=== PATIENT | male | born 1965 | race Caucasian/White ===

== ENCOUNTER 2017-12-09 14:16 | Inpatient (IN) | payer OTHER ==
--- NOTE | 2017-12-09 18:51 | HP ---
CIWA Score - CIWA Score Nausea/Vomitin-No Nausea/No Vomiting Muscle Tremors: 4-Moderate,w/Arms Extend Anxiety: 2 Agitation: 0-Normal Activity Paroxysmal Sweats: No Perspiration Orientation: 1-Uncertain about Date Tacttile Disturbances: 0-None Auditory Disturbances: 0-None Visual Disturbances: 0-None Headache: 0-None Present CIWA-Ar Total Score: 7 Admission ROS B[facility] - HPI Allergies/Adverse Reactions: Allergies Allergy/AdvReac Type Severity Reaction Status Date / Time No Known Allergies Allergy Verified 12/09/17 18:45 History of Present Illness: pt here requesting detox from etoh use , reports he is drinking 3-4 large liquor bottles and 1 case of beer/day , latest use today , reports tremors if not drinking ,denies seizures, blackouts ,+ falls most recently 1 week ago went to [facility] . No d/c papers available, pt vague about the history of hospital admission and d/c, states went to the store and has been drinking , currently complains of tremors. utox + opi pmhx/pshx : r shoulder stiffness x 2 weeks. Has trach - does not recall details . psych : denies allergies ; denies tobacco : 3 ppd Exam Limitations: Clinical Condition, Intoxication - Ebola screening Have you traveled outside of the country in the last 21 days: No Have you had contact with anyone from an Ebola affected area: No Do you have a fever: No - Review of Systems Constitutional: See HPI EENT: reports: No Symptoms Reported Respiratory: reports: Cough, Other (reports cough x 2 weeks, claims had CXR at hospital) Cardiac: reports: No Symptoms Reported GI: reports: Diarrhea : reports: No Symptoms Reported Musculoskeletal: reports: Back Pain, Other (reports Lbp X 2 WEEKS after fall) Integumentary: reports: Other (left eyebrow laceration after fall 2 weeks ago) Neuro: reports: Unsteady Gait Endocrine: reports: No Symptoms Reported Hematology: reports: No Symptoms Reported Psychiatric: reports: Orientated x3, Depressed Patient History - Smoking Cessation Smoking history: Current every day smoker Have you smoked in the past 12 months: Yes Aproximately how many cigarettes per day: 3 Hx Chewing Tobacco Use: No Initiated information on smoking cessation: No - Substances Abused Alcohol Route: Oral Frequency: Daily Amount used: 6 PACK BEER Age of first use: 18 Date of Last Use: 12/09/17 Family Disease History - Family Disease History Family History: Denies Admission Physical Exam [facility] - Physical General Appearance: Yes: Disheveled, Moderate Distress, Tremorous, Anxious HEENTM: Yes: EOMI, Hearing grossly Normal, Normocephalic, Normal Voice, Pharynx Normal, Other (many missing teeth , trach site w/ dressing intact left subraorbital abrasion w/ crusting, no deformity) Respiratory: Yes: Decreased Breath Sounds, No Accessory Muscle Use, Rhonchi Neck: Yes: No masses,lesions,Nodules, Trachea in good position, Other (dressing in place , intact , no discharge noted) Breast: Yes: Breast Exam Deferred Cardiology: Yes: Regular Rhythm, Regular Rate, Tachycardia Abdominal: Yes: Normal Bowel Sounds, Non Tender, Soft Genitourinary: Yes: Within Normal Limits Back: Yes: Normal Inspection Musculoskeletal: Yes: Joint Stiffness, Other (decreased PROM R UE , fair PROM , no tendernes no crepitus no deformity) Extremities: Yes: Normal Capillary Refill, Normal Inspection, Non-Tender, Tremors, Pedal Edema, Other (sepideh hands edema) Neurological: Yes: Motor Strength 5/5, Disoriented, Depressed Affect Integumentary: Yes: Normal Color, Dry, Warm - Addiitonal Findings: patient is very poor historian . - Diagnostic (1) Alcohol withdrawal Current Visit: Yes Status: Acute Qualifiers: Complication of substance-induced condition: with unspecified complication Qualified Code(s): F10.239 - Alcohol dependence with withdrawal, unspecified (2) Nicotine dependence Current Visit: Yes Status: Chronic Qualifiers: Substance use status: uncomplicated
[2017-12-09] MEDS ORDERED: IBUPROFEN 400 MG TABLET (FP) PO PRN (19:01)
[2017-12-09] MEDS ORDERED: MAGNESIUM CITRATE 300 ML BOTTLE PO PRN (19:01)
[2017-12-09] MEDS ORDERED: MAG HYDROX/AL HYDROX/SIMETH 30 ML UNIT-DOSE CUP PO PRN (19:01)
[2017-12-09] MEDS ORDERED: P-EPHED 60MG/TRIPROLIDI 2.5MG TABLET PO PRN (19:01)
[2017-12-09] MEDS ORDERED: MAGNESIUM HYDROX 2400MG/30ML ORAL SUSPENSION 30 ML CUP PO PRN (19:01)
[2017-12-09] MEDS ORDERED: chlordiazePOXIDE HCL 25 MG CAPSULE PO PRN (19:01)
[2017-12-09] MEDS ORDERED: guaiFENesin/D-METHORPHAN HB 10 ML UNIT-DOSE CUPS PO PRN (19:01)
[2017-12-09] MEDS ORDERED: MENTHOL/PHENOL 1 EACH UD MM PRN (19:01)
[2017-12-09] MEDS ORDERED: ACETAMINOPHEN 325 MG TABLET (FP) PO PRN (19:01)
[2017-12-09] MEDS ORDERED: NICOTINE POLACRILEX 2 MG GUM BC PRN (19:01)
[2017-12-09 19:49] VITALS: BMI 22.6
[2017-12-09] MEDS ORDERED: MELATONIN 5 MG TABLETS PO PRN (22:00)
[2017-12-09] MEDS: chlordiazePOXIDE HCL 25 MG CAPSULE PO SCH (22:50)
[2017-12-09] MEDS: THIAMINE HCL 100 MG TABLET (FP) PO SCH (22:50)
[2017-12-10] MEDS: chlordiazePOXIDE HCL 25 MG CAPSULE PO SCH ×4 (07:14→23:19)
[2017-12-10] MEDS: PRENATAL VITAMINS W/ FOLIC ACID TABLET (FP) PO SCH (10:34)
[2017-12-10 11:04] LABS: ALBUMIN 3.2 g/dl (3.4-5.0); ALK PHOS 241 U/L (45-117); ANION GAP 11 MMOL/L (8-16); BILIRUBIN,TOTAL 1.1 mg/dL (0.2-1); BLOOD UREA NITROGEN 7 mg/dL (7-18); CALCIUM 8.5 mg/dL (8.5-10.1); CHLORIDE 103 mmol/L (98-107); CO2 24 mmol/L (21-32); CREATININE 0.5 mg/dL (0.55-1.3); GLUCOSE,RANDOM 73 mg/dL (74-106); POTASSIUM 3.5 mmol/L (3.5-5.1); SGOT/AST 82 U/L (15-37); SGPT/ALT 37 U/L (13-61); SODIUM 138 mmol/L (136-145); TOT PROT 8.1 g/dl (6.4-8.2)
[2017-12-10 11:05] LABS: HEMOGLOBIN 9.1 GM/dL (11.7-16.9); MCH 27.1 pg (25.7-33.7); MCHC 31.5 g/dl (32.0-35.9); MEAN CELL VOLUME 86.1 fl (80-96); MEAN PLT VOLUME 8.9 fl (7.5-11.1); PLATELET COUNT 84 K/MM3 (134-434); RBC 3.37 M/mm3 (4.00-5.60); RDW 15.1 % (11.9-15.9); WHITE BLOOD COUNT 5.7 K/mm3 (4.0-10.0)
--- NOTE | 2017-12-10 14:17 | PN ---
S CIWA - CIWA Score Nausea/Vomitin Muscle Tremors: 3 Anxiety: 3 Agitation: 3 Paroxysmal Sweats: 3 Orientation: 0-Oriented Tacttile Disturbances: 0-None Auditory Disturbances: 0-None Visual Disturbances: 0-None Headache: 0-None Present CIWA-Ar Total Score: 14 S Progress Note (SOAP) Subjective: sweats diarrhea sleep disturbance shakes Objective: 12/10/17 14:13 Met sleeping in bed arousable to verbal stimuli cane by bedside, abdomen distended Vital Signs Temperature 99 F 12/10/17 14:07 Pulse Rate 96 H 12/10/17 14:07 Respiratory Rate 18 12/10/17 14:07 Blood Pressure 141/101 H 12/10/17 14:07 O2 Sat by Pulse Oximetry (%) Laboratory Last Values WBC 5.7 K/mm3 (4.0-10.0) 12/10/17 08:00 RBC 3.37 M/mm3 (4.00-5.60) L 12/10/17 08:00 Hgb 9.1 GM/dL (11.7-16.9) L 12/10/17 08:00 Hct 29.0 % (35.4-49) L 12/10/17 08:00 MCV 86.1 fl (80-96) 12/10/17 08:00 MCH 27.1 pg (25.7-33.7) 12/10/17 08:00 MCHC 31.5 g/dl (32.0-35.9) L 12/10/17 08:00 RDW 15.1 % (11.9-15.9) 12/10/17 08:00 Plt Count 84 K/MM3 (134-434) L 12/10/17 08:00 MPV 8.9 fl (7.5-11.1) 12/10/17 08:00 Sodium 138 mmol/L (136-145) 12/10/17 08:00 Potassium 3.5 mmol/L (3.5-5.1) 12/10/17 08:00 Chloride 103 mmol/L (98-107) 12/10/17 08:00 Carbon Dioxide 24 mmol/L (21-32) 12/10/17 08:00 Anion Gap 11 MMOL/L (8-16) 12/10/17 08:00 BUN 7 mg/dL (7-18) 12/10/17 08:00 Creatinine 0.5 mg/dL (0.55-1.3) L 12/10/17 08:00 Creat Clearance w eGFR > 60 (>60) 12/10/17 08:00 Random Glucose 73 mg/dL (74-106) L 12/10/17 08:00 Calcium 8.5 mg/dL (8.5-10.1) 12/10/17 08:00 Total Bilirubin 1.1 mg/dL (0.2-1) H 12/10/17 08:00 AST 82 U/L (15-37) H 12/10/17 08:00 ALT 37 U/L (13-61) 12/10/17 08:00 Alkaline Phosphatase 241 U/L (45-117) H 12/10/17 08:00 Total Protein 8.1 g/dl (6.4-8.2) 12/10/17 08:00 Albumin 3.2 g/dl (3.4-5.0) L 12/10/17 08:00 RPR Titer Nonreactive (NONREACTIVE) 12/10/17 08:00 labs noted H & H low UA pending Assessment: 12/10/17 14:16 withdrawal sx Anemia Plan: continue detox Iron supplements
--- NOTE | 2017-12-10 14:19 | PN ---
[facility] Progress Note Note: Tuberculin ordered re- no documented PPD status
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
[2017-12-10] MEDS: FERROUS SO4 325 MG TABLET (FP) PO SCH (21:57)
[2017-12-10] MEDS: THIAMINE HCL 100 MG TABLET (FP) PO SCH (23:19)
[2017-12-11] MEDS: chlordiazePOXIDE HCL 25 MG CAPSULE PO SCH ×3 (06:39→23:23)
[2017-12-11] MEDS: FERROUS SO4 325 MG TABLET (FP) PO SCH ×2 (07:04→23:30)
[2017-12-11] MEDS: PRENATAL VITAMINS W/ FOLIC ACID TABLET (FP) PO SCH (10:35)
--- NOTE | 2017-12-11 10:45 | PN ---
[facility] CIWA - CIWA Score Nausea/Vomitin-Mild Nausea/No Vomiting Muscle Tremors: 2 Anxiety: 1-Mildly Anxious Agitation: 1-Slight > Activity Paroxysmal Sweats: 1-Minimal Palms Moist Orientation: 1-Uncertain about Date Tacttile Disturbances: 1-Very Mild Itch/Numbness Auditory Disturbances: 1-Very Mild Visual Disturbances: 0-None Headache: 1-Very Mild CIWA-Ar Total Score: 10 BHS Progress Note (SOAP) Subjective: sweat tremor gi distress body aches Objective: 12/11/17 10:44 Vital Signs Temperature 97.9 F 12/11/17 09:36 Pulse Rate 101 H 12/11/17 09:36 Respiratory Rate 20 12/11/17 09:36 Blood Pressure 146/89 12/11/17 09:36 O2 Sat by Pulse Oximetry (%) Laboratory Last Values WBC 5.7 K/mm3 (4.0-10.0) 12/10/17 08:00 RBC 3.37 M/mm3 (4.00-5.60) L 12/10/17 08:00 Hgb 9.1 GM/dL (11.7-16.9) L 12/10/17 08:00 Hct 29.0 % (35.4-49) L 12/10/17 08:00 MCV 86.1 fl (80-96) 12/10/17 08:00 MCH 27.1 pg (25.7-33.7) 12/10/17 08:00 MCHC 31.5 g/dl (32.0-35.9) L 12/10/17 08:00 RDW 15.1 % (11.9-15.9) 12/10/17 08:00 Plt Count 84 K/MM3 (134-434) L 12/10/17 08:00 MPV 8.9 fl (7.5-11.1) 12/10/17 08:00 Sodium 138 mmol/L (136-145) 12/10/17 08:00 Potassium 3.5 mmol/L (3.5-5.1) 12/10/17 08:00 Chloride 103 mmol/L (98-107) 12/10/17 08:00 Carbon Dioxide 24 mmol/L (21-32) 12/10/17 08:00 Anion Gap 11 MMOL/L (8-16) 12/10/17 08:00 BUN 7 mg/dL (7-18) 12/10/17 08:00 Creatinine 0.5 mg/dL (0.55-1.3) L 12/10/17 08:00 Creat Clearance w eGFR > 60 (>60) 12/10/17 08:00 Random Glucose 73 mg/dL (74-106) L 12/10/17 08:00 Calcium 8.5 mg/dL (8.5-10.1) 12/10/17 08:00 Total Bilirubin 1.1 mg/dL (0.2-1) H 12/10/17 08:00 AST 82 U/L (15-37) H 12/10/17 08:00 ALT 37 U/L (13-61) 12/10/17 08:00 Alkaline Phosphatase 241 U/L (45-117) H 12/10/17 08:00 Total Protein 8.1 g/dl (6.4-8.2) 12/10/17 08:00 Albumin 3.2 g/dl (3.4-5.0) L 12/10/17 08:00 RPR Titer Nonreactive (NONREACTIVE) 12/10/17 08:00 lab noted Assessment: 12/11/17 10:44 withdrawal sx anemia 12/11/17 10:45 back pain Plan: continue detox continue iron supplement baclofen 10 mg x 1
[2017-12-11] MEDS ORDERED: BACLOFEN 10 MG TABLET (FP) PO ONE (12:00)
[2017-12-11] MEDS: RANITIDINE HCL 150 MG TABLET (FP) PO SCH ×2 (12:17→23:31)
[2017-12-11] MEDS ORDERED: LOPERAMIDE HCL 1 MG/5 ML UNIT DOSE CUP PO ONE (13:07)
[2017-12-11] MEDS: LOPERAMIDE HCL 2 MG CAPSULE PO ONE (13:42)
[2017-12-11] MEDS: chlordiazePOXIDE 5 MG CAPSULE PO SCH (23:32)
[2017-12-11] MEDS: THIAMINE HCL 100 MG TABLET (FP) PO SCH (23:32)
[2017-12-12] MEDS: chlordiazePOXIDE 5 MG CAPSULE PO SCH ×3 (06:09→17:54)
[2017-12-12] MEDS: FERROUS SO4 325 MG TABLET (FP) PO SCH ×2 (08:33→17:54)
[2017-12-12] MEDS ORDERED: LOPERAMIDE HCL 2 MG CAPSULE PO ONE (08:50)
[2017-12-12] MEDS: PRENATAL VITAMINS W/ FOLIC ACID TABLET (FP) PO SCH (10:06)
[2017-12-12] MEDS: RANITIDINE HCL 150 MG TABLET (FP) PO SCH ×2 (10:06→22:05)
[2017-12-12] MEDS ORDERED: BACLOFEN 10 MG TABLET (FP) PO ONE (10:13)
--- NOTE | 2017-12-12 12:33 | PN ---
[facility] Progress Note (SOAP) Subjective: feeling better no tremor less sweat no gi distress Objective: 12/12/17 12:32 Vital Signs Temperature 97.3 F L 12/12/17 09:34 Pulse Rate 89 12/12/17 09:34 Respiratory Rate 18 12/12/17 09:34 Blood Pressure 137/98 12/12/17 09:34 O2 Sat by Pulse Oximetry (%) Laboratory Last Values WBC 5.7 K/mm3 (4.0-10.0) 12/10/17 08:00 RBC 3.37 M/mm3 (4.00-5.60) L 12/10/17 08:00 Hgb 9.1 GM/dL (11.7-16.9) L 12/10/17 08:00 Hct 29.0 % (35.4-49) L 12/10/17 08:00 MCV 86.1 fl (80-96) 12/10/17 08:00 MCH 27.1 pg (25.7-33.7) 12/10/17 08:00 MCHC 31.5 g/dl (32.0-35.9) L 12/10/17 08:00 RDW 15.1 % (11.9-15.9) 12/10/17 08:00 Plt Count 84 K/MM3 (134-434) L 12/10/17 08:00 MPV 8.9 fl (7.5-11.1) 12/10/17 08:00 Sodium 138 mmol/L (136-145) 12/10/17 08:00 Potassium 3.5 mmol/L (3.5-5.1) 12/10/17 08:00 Chloride 103 mmol/L (98-107) 12/10/17 08:00 Carbon Dioxide 24 mmol/L (21-32) 12/10/17 08:00 Anion Gap 11 MMOL/L (8-16) 12/10/17 08:00 BUN 7 mg/dL (7-18) 12/10/17 08:00 Creatinine 0.5 mg/dL (0.55-1.3) L 12/10/17 08:00 Creat Clearance w eGFR > 60 (>60) 12/10/17 08:00 Random Glucose 73 mg/dL (74-106) L 12/10/17 08:00 Calcium 8.5 mg/dL (8.5-10.1) 12/10/17 08:00 Total Bilirubin 1.1 mg/dL (0.2-1) H 12/10/17 08:00 AST 82 U/L (15-37) H 12/10/17 08:00 ALT 37 U/L (13-61) 12/10/17 08:00 Alkaline Phosphatase 241 U/L (45-117) H 12/10/17 08:00 Total Protein 8.1 g/dl (6.4-8.2) 12/10/17 08:00 Albumin 3.2 g/dl (3.4-5.0) L 12/10/17 08:00 RPR Titer Nonreactive (NONREACTIVE) 12/10/17 08:00 lab noted Assessment: 12/12/17 12:33 mild withdrawal sx Plan: medically supervised detox
[2017-12-12] MEDS: THIAMINE HCL 100 MG TABLET (FP) PO SCH (22:05)
[2017-12-12] MEDS: chlordiazePOXIDE HCL 10 MG CAPSULE PO SCH (22:05)
[2017-12-13] MEDS: chlordiazePOXIDE HCL 10 MG CAPSULE PO SCH (05:47)
[2017-12-13] MEDS: FERROUS SO4 325 MG TABLET (FP) PO SCH (07:42)
[2017-12-13] MEDS: RANITIDINE HCL 150 MG TABLET (FP) PO SCH (09:21)
[2017-12-13] MEDS: PRENATAL VITAMINS W/ FOLIC ACID TABLET (FP) PO SCH (09:21)
[2017-12-13] MEDS ORDERED: LOPERAMIDE HCL 2 MG CAPSULE PO PRN (09:27)
[2017-12-13 09:36] VITALS: BP 115/78; PULSE 92; TEMP 96.9
--- NOTE | 2017-12-13 09:42 | DS ---
[facility] Detox Discharge Summary Admission Date: 12/09/17 Discharge Date: 12/13/17 - History Present History: Alcohol Dependence - Physical Exam Results Vital Signs: Vital Signs Temperature 96.9 F L 12/13/17 09:36 Pulse Rate 92 H 12/13/17 09:36 Respiratory Rate 19 12/13/17 09:36 Blood Pressure 115/78 12/13/17 09:36 O2 Sat by Pulse Oximetry (%) - Treatment Hospital Course: Detox Protocol Followed, Detoxed Safely, Responded well, Discharged Condition Good, Rehab Referral Accepted - Medication Discharge Medications: Ambulatory Orders NK [No Known Home Medication] 12/09/17 - Diagnosis (1) Alcohol withdrawal Current Visit: Yes Status: Acute Qualifiers: Complication of substance-induced condition: uncomplicated Qualified Code(s ): F10.230 - Alcohol dependence with withdrawal, uncomplicated (2) Nicotine dependence Current Visit: Yes Status: Chronic Qualifiers: Nicotine product type: cigarettes Substance use status: uncomplicated Qualified Code(s): F17.210 - Nicotine dependence, cigarettes, uncomplicated (3) Substance induced mood disorder Current Visit: Yes Status: Acute (4) Anemia Current Visit: Yes Status: Chronic Qualifiers: Anemia type: unspecified type Qualified Code(s): D64.9 - Anemia, unspecified - AMA Did Patient Leave Against Medical Advice: No (going home.)
[2017-12-13] MEDS: LOPERAMIDE HCL 2 MG CAPSULE PO ONE (09:45)
[2017-12-13 16:38] LABS: URINE APPEARANCE CLEAR; URINE BILIRUBIN NEGATIVE (<2.0 mg/dL); URINE COLOR LTYELLOW; URINE GLUCOSE (UA) NEGATIVE (NEGATIVE); URINE KETONE NEGATIVE (NEGATIVE); URINE LEUK ESTERASE NEGATIVE (NEGATIVE); URINE NITRITE NEGATIVE (NEGATIVE); URINE PROTEIN NEGATIVE (NEGATIVE); URINE UROBILINOGEN NEGATIVE mg/dL (0.2-1.0)
== END 2017-12-13 10:27 | disposition home or self-care (01) | DRG 775 ==
LOC: YASAS 14:16 → Y6N 20:01
PROC: HZ2ZZZZ Detoxification Services for Substance Abuse Treatment (ICD-10-PCS; principal; 2017-12-09)
DX: F10.230 Alcohol dependence with withdrawal, uncomplicated (principal); F17.210 Nicotine dependence, cigarettes, uncomplicated; F19.24 Other psychoactive substance dependence with psychoactive substance-induced mood disorder; D64.9 Anemia, unspecified; M54.9 Dorsalgia, unspecified
CPT/HCPCS: 36415; 80053; 81003; 85027; 86593; J0475